=== PATIENT | female | born 2000 | race Caucasian/White ===

== ENCOUNTER 2025-02-17 18:49 | Emergency (ER) | payer MEDICAID, SELFPAY ==
[2025-02-17 18:57] VITALS: BP 129/68; PULSE 97; RESP 18; TEMP 36.8; O2SAT 97; BMI 20.5
--- NOTE | 2025-02-17 18:57 | ED_ITS ---
HPI - General Adult General Chief complaint: Allergic Reaction Stated complaint: Allergic reaction Time Seen by Provider: 02/17/25 19:00 Source: patient, RN notes reviewed and old records reviewed Mode of arrival: ambulatory Limitations: no limitations History of Present Illness ED Provider: Krystyna SHANKS narrative: 24-year-old female presents for evaluation of a rash that she 1st noticed ea rlier today. She denies any known allergies. The rash is itchy pain Denies any pain or fevers pain She denies any new medications, lotions, soaps, detergents. Denies any difficulty breathing or swallowing Related Data Previous Rx's ?Medication ?Instructions ?Recorded diphenhydramine HCl 25 mg capsule 25 mg PO Q4-6H PRN i tching #20 caps 02/17/25 (Allergy Medication) prednisone 20 mg tablet 40 mg (2 x 20 mg) PO DAILY # 10 tabs 02/17/25 Allergies Allergy/AdvReac Type Severity Reaction Status Date / Time No Known Allergies Allergy Verified 02/17/25 19:01 Review of Systems Constitutional: Constitutional: Denies body ache(s), Denies chills and Denies fever(s) Eyes: Eyes: Denies blurry vision ENT: Denies vertigo Cardiovascular: Cardiovascular: Denies chest pain and Denies dyspnea on exertion Respiratory: Respiratory: Denies cough and Denies dyspnea on exertion Integumentary/Breasts: Skin/Breast: Reports rash Neurologic: Denies vertigo PMFSH Social History Social History Advance Directives: No Advance Directives Information Provided: No Physical Exam ED Vital Signs: Vital Signs - 24 hr 02/17/25 18:57 02/17/25 19:15 Temperature 98.3 F 98.3 F Pulse Rate 97 97 Respiratory Rate 18 18 Blood Pressure 129/68 129/68 Pulse Oximetry 97 97 Oxygen Delivery Method Room Air Room Air BMI result Body Mass Index 20.5 Const General: healthy appearing, comfortable, no acute distress, alert and awake Nutritional Appearance: well nourished Orientation/consciousness: patient oriented x3 HENMT Other: No oral, perioral, or retropharyngeal edema Head: Yes normocephalic and Yes atraumatic Eyes Eyelids: Yes eyelids normal Conjunctivae: conjunctivae normal Sclerae: sclerae normal Corneas: corneas normal Pupils: Equal, round and reactive pupils present EOM: EOMs intact bilaterally Neck Neck: Yes full ROM Resp Effort & Inspection: normal respiratory effort, able to speak in complete sentences and not labored Skin Other: There is mild urticaria to the chest, upper back, extremities. No involvement of the face General skin exam: elasticity normal Neuro General: patient oriented x3 Cranial nerves: Yes Equal, round and reactive pupils present and Yes Bilaterally intact EOM present Cognition (Neuro): normal cognition Extrem Other: Moving all extremities well without any obvious deformities Course Course Course Narrative: RME, this is a rapid medical exam performed by David Greenwood please refer to primary provider for complete H&P- 24 year old Medical Decision Making Medical Decision Making MDM Narrative: 24-year-old female presents for evaluation of a mild rash. This appears consistent with a mild allergic reaction or urticaria. No evidence of anaphylaxis or systemic infection. We will treat with Benadryl and I did prescribe a course of prednisone but encouraged the patient to try just the Benadryl 1st. She will be referred to an weight shifter for further testing. Differential Diagnosis Differential Diagnoses: The differential diagnosis associated with the presentation includes Allergic reaction Urticaria Dermatitis Anaphylaxis Discharge Plan Discharge Clinical Impression: Urticaria Patient Disposition: Home, Self-Care Instructions: Urticaria (ED) Additional Instructions: Your symptoms are consistent with a very mild allergic reaction. I recommend taking Benadryl 25 mg every 4-6 hours. This may make you drowsy, do not drink alcohol or drive after taking it. Your symptoms do not clear up by tomorrow I recommend starting the prednisone that you were prescribed today Prescriptions: New diphenhydramine HCl [Allergy Medication] 25 mg capsule 25 mg PO Q4-6H PRN (Reason: itching) Qty: 20 0RF prednisone 20 mg tablet 40 mg PO DAILY Qty: 10 0RF [facility] [Outside] Referral Note: urticaria Stand Alone Forms: Work/School Release Interventions: ED Discharge Assessment Last Done: 02/17/25 19:15 Discharge Date/Time: 02/17/25 19:15 Print Language: Zimbabwean
--- OUTSIDE RECORDS SUMMARY | 2025-02-17 19:10 | XMS_ITS | Encounter Summary ---
Author Organization [facility] Address [address] [facility] [address] [place] [address] Phone Care Team Providers Care Senior Data Modeler Name Role Phone Dileep Arndt MD Primary Care Provider [phone] Erlinda Gomez MD Primary Care Provider [phone] Pcp, Unknown Primary Care Provider Unavailabl Jovita Bhatti Primary Care Provider [phone] Benjie Mcgraw SOLAR MANUFACTURER'S REPRESENTATIVE Unavailable [phone] Benjie Mcgraw SOLAR MANUFACTURER'S REPRESENTATIVE Unavailable [phone] Encounter Details Date Type Department Care Team (Late st Contact Info) Description 10/12/2019 Ancillary Orders [facility], X-Ray - [address] [address] Brock Link MD [address] [place] [address] [email or web address] DDH (developmental dysplasia of the hip); Perthes disease, right Social History Tobacco Use Types Packs/Day Years Used Date Smoking Tobacco: Never Smokeless Tobacco: Never Alcohol Use Standard Drinks/Week Comments Not Currently 0 (1 standard drink = 0.6 oz pur e alcohol) Comments No Sex and Gender Information Value Date Recorded Sex Assigned at Female 09/03/2017 12:25 PM EDT Legal Sex Female 8:45 PM EDT Gender Identity Female 09/03/2017 12:25 PM EDT Sexual Orientation Bisexual 09/03/2017 12 :25 PM EDT Occupation Industry Job Start Date Job End Date 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 POS [id number] Narrative 10/12/2019 12:41 PM EDT AP pelvis and bilateral q. day views of hips Compared to coned left hip 09/02/2017 and right hip 09/01/2016 Dysplastic right femoral head unchanged. No significant left hip dysplasia. New cortical screws affixing the right greater trochanter and in the right ilium from a periacetabular osteotomy. There is also an osteotomy of the lateral right superior ramus. Left hip is unchanged Symphysis pubis and SI joints seem intact. No dislocation. Procedure Note Long Landry MD - 10/12/2019 AP pelvis and bilateral q. day views of hips Compared to coned left hip 09/02/2017 and right hip 09/01/2016 Dysplastic right femoral head unchanged. No significant left hip dysplasia. New cortical screws affixing the right greater trochanter and in the rightilium from a periacetabular osteotomy. There is also an osteotomy of the lateral right superior ramus. Left hip is unchanged Symphysis pubis and SI joints seem intact. No dislocation. IMPRESSION: No immediate complications of right periacetabular osteotomy. 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, right documented in this encounter Additional Health Concerns Infection Onset Date Last Indicated Resolved Time CoV-Risk 07/25/2020 07/25/2020 08/04/2020 1:24 AM EST CoV-Risk 04/09/2022 04/09/2022 04/20/2022 1:22 AM EDT CoV-Risk 08/15/2024 08/15/2024 08/26/2024 1:21 AM EST documented as of this encounter Care Teams Senior Data Modeler Relationship Specialty Start Date End Date Dileep Arndt MD [address] [place] [address] [email or web address] PCP - General Pediatrics 09/03/17 11/08/19 Erlinda Gomez MD [address] [place] [address] PCP - General Pediatrics 11/09/19 04/08/22 Pcp, Unknown PCP - General 04/09/22 10/19/22 Jovita Aguayo PA [address] [place] [address] [email or web address] PCP - General Physician Furniture Mover Helper 10/20/22 Benjie Mcgraw [address] [address] [email or web address] Social Work 10/20/22 11/19/22 Benjie Mcgraw SOLAR MANUFACTURER'S REPRESENTATIVE [address] [place] [address] [employer] Social Work 11/01/24 documented as of this encounter Additional Source Comments The information contained in this document represents components of the legal health record. It is not the complete legal health record.[facility]
--- OUTSIDE RECORDS SUMMARY | 2025-02-17 19:10 | XMS_ITS | Encounter Summary ---
Author Organization [facility] Address [address] [facility] [address] [place] [address] Phone Care Team Providers Care Applied Anthropologist Name Role Phone Erlinda Gomez MD Primary Care Provider [phone] Pcp, Unknown Primary Care Provider Unavailabl Jovita Bhatti Primary Care Provider [phone] Benjie Mcgraw PROJECT TECHNICIAN Unavailable [phone] Benjie Mcgraw PROJECT TECHNICIAN Unavailable [phone] Encounter Details Date Type Department Care Team (Late st Contact Info) Description 11/09/2019 Ancillary Orders Virtual Department [address] [place] [address] Brock Link MD [address] [place] [address] [email or web address] Anterior dislocation of right hip, subsequent encounter Social History Tobacco Use Types Packs/Day Years [...] on file documented as of this encounter Visit Diagnoses Diagnosis Anterior dislocation of right hip, subsequent encounter documented in this encounter Additional Health Concerns Infection Onset Date Last Indicated Resolved Time CoV-Risk 07/25/2020 07/25/2020 08/04/2020 1:24 AM EST CoV-Risk 04/09/2022 04/09/2022 04/20/2022 1:22 AM EDT CoV-Risk 08/15/2024 08/15/2024 08/26/2024 1:21 AM EST documented as of this encounter Care Teams Applied Anthropologist Relationship Specialty Start Date End Date Erlinda Gomez MD [address] [facility], [facility] [address] [place] [address] [email or web address] PCP - General Pediatrics 11/09/19 04/08/22 Pcp, Unknown PCP - General 04/09/22 10/19/22 Jovita Aguayo PA [address] [place] [address] [email or web address] PCP - General Physician Statistical Technician 10/20/22 Benjie Mcgraw [address] [address] [facility] Social Work 10/20/22 11/19/22 Benjie Mcgraw [address] [address] [facility] Social Work 11/01/24 documented as of this encounter Additional Source Comments The information contained in this document represents components of the legal health record. It is not the complete legal health record.[facility]
--- OUTSIDE RECORDS SUMMARY | 2025-02-17 19:10 | XMS_ITS | Encounter Summary ---
Author Organization [facility] Address [address] [facility] [address] [place] [address] Phone Care Team Providers Care Cigarette Machines Mechanic Name Role Phone Erlinda Gomez MD Primary Care Provider [phone] Pcp, Unknown Primary Care Provider Unavailabl Jovita Bhatti Primary Care Provider [phone] Benjie Mcgraw SALES AND MARKETING PROFESSIONAL Unavailable [phone] Benjie Mcgraw SALES AND MARKETING PROFESSIONAL Unavailable [phone] Encounter Details Date Type Department Care Team (Late st Contact Info) Description 11/09/2019 Ancillary Orders Virtual Department [address] [place] [address] Brock Link MD [address] [place] [address] [email or web address] DDH (developmental dysplasia of the hip); [...] of this encounter Results * XR HIPS 1 VW EA BILAT PLUS PELVIS (11/10/2019 3:15 PM EDT) Anatomical Region Laterality Modality Hip, Pelvis Radiographic Hilda ging 11/10/2019 8:02 PM EDT Impressions 11/10/2019 8:13 PM EDT 1. Near completely healed right iliac osteotomy site. 2. Ununited right greater trochanteric fragment 3. Healing osteotomy of the right superior pubic ramus. POS - [id number] Narrative 11/10/2019 8:13 PM EDT EXAM: XR HIPS 1 VW EA BILAT PLUS PELVIS COMPARISON: October 12, 2019 FINDINGS: All the long screws are intact. Three long screws traverse the near completely healed right iliac osteotomy site. Two long screws traverse the ununited right proximal femur. 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 Healing of the osteotomy site at right superior pubic ramus. Bilateral sacroiliac joints, bilateral hips and pubic symphysis are congruent. An intrauterine device projects over the pelvis. Procedure Note Michael Barboza MD - 11/10/2019 EXAM: XR HIPS 1 VW EA BILAT PLUS PELVIS COMPARISON: October 12, 2019 FINDINGS: All the long screws are intact. Three long screws traverse the nearcompletely healed right iliac osteotomy site. Two long screws traverse theununited right proximal femur. Chronic dysplastic deformity of the rightfemoral head. Healing of the osteotomy site at right superior pubic ramus.Bilateral sacroiliac joints, bilateral hips and pubic symphysis arecongruent. An intrauterine device projects over the pelvis. IMPRESSION: 1. Near completely healed right iliac osteotomy site. 2. Ununited right greater trochanteric fragment 3. Healing osteotomy of the right superior pubic ramus. POS - [id number] Brock Link MD IMG XR PELVIS Final [...] documented as of this encounter Care Teams Cigarette Machines Mechanic Relationship Specialty Start Date End Date Erlinda Gomez MD [address] [facility] 2 [place] [address] [email or web address] PCP - General Pediatrics 11/09/19 04/08/22 Pcp, Unknown PCP - General 04/09/22 10/19/22 Jovita Aguayo PA [address] [place] [address] [email or web address] PCP - General Physician Paperhanger Assistant 10/20/22 Benjie Mcgraw [address] [address] [facility] Social Work 10/20/22 11/19/22 Benjie Mcgraw [address] [address] [facility] Social Work 11/01/24 documented as of this encounter Additional Source Comments The information contained in this document represents components of the legal health record. It is not the complete legal health record.[facility]
--- OUTSIDE RECORDS SUMMARY | 2025-02-17 19:10 | XMS_ITS | Clinical Summary ---
Author Organization [facility] Address [address] [place] [address] Phone Care Team Providers Care Customer Experience Analyst Name Role Phone Erlinda Gomez MD Unavailable [phone] , [facility] Unavailable [phone] Jovita Jones Primary Care Provider [phone] Allergies No known active allergies Medications acetaminophen (Tylenol) 325 mg tablet Dose: 650 mg, Dose Amount: 2 tab, PO, Q4hr, Entered: 08/26/19 16:57:09 EST, 51.4 0 Active piroxicam 20 mg capsuleIndicati ons:Tear of right acetabular labrum, initial encounter Take 20 mg = 1 capsule by mouth 1 time each day. 30 capsule 1 4 Active Additional Information Patient not taking.Reported on 08/04/2024 aspirin 325 mg EC tabletIndicatio ns:Tear of right acetabular labrum, initial encounter Take 325 mg = 1 tablet by mouth 1 time each day. 21 tablet 5 Active diazePAM 2 mg tabletIndicatio ns:Tear of right acetabular labrum, initial encounter Take 2 mg = 1 tablet by mouth every 8 hours if needed for muscle spasms. 20 tablet 5 Active oxyCODONE 5 mg immediate release tabletIndicatio ns:Tear of right acetabular labrum, initial encounter Take 5 mg = 1 tablet by mouth every 6 hours if needed (severe pain only). The patient may request a lesser amount be dispensed than what was prescribed. 16 tablet 5 Active ondansetron 4 mg tabletIndicatio ns:Tear of right acetabular labrum, initial encounter Take 4 mg = 1 tablet by mouth every 8 hours if needed for nausea or vomiting. 20 tablet 5 Active Active Problems Problem Noted Date Diagnosed Date Tear of right acetabular labrum 05/30/2024 Social History Tobacco Use Types Packs/Day Years Used Date Smoking Tobacco: Some Days Cigarettes Tobacco Cessation:Ready to Q uit: Not Asked; Counseling Given: Not Answered Alcohol Use Standard Drinks/Week Comments Yes 0 (1 standard drink = 0.6 oz pur e alcohol) Comments Unknown Sex and Gender Information Value Date Recorded Sex Assigned at Not on file Legal Sex Female 8:21 PM EDT Gender Identity Not on file Sexual Orientation Not on file Last Filed Vital Signs Vital Sign Reading Time Taken Comments Blood Pressure 115/55 08/04/2024 6:57 AM EST Pulse 102 11/19/2023 4:21 PM EDT Temperature 36 C (96.8 F) 08/04/2024 6:57 AM EST Respiratory Rate 20 11/19/2023 4:21 PM EDT Oxygen Saturation 98% 08/04/2024 6:57 AM EST Inhaled Oxygen Concentration - - Weight 61.9 kg (136 lb 7.4 oz) 08/04/2024 6:57 A M EST Height 165 cm (5' 4.96 ) 08/04/2024 6:57 AM EST Body Mass Index 22.74 08/04/2024 6:57 AM EST Plan of Treatment Health Maintenance Due Date Last Done Comments HIV Screening 2001 Meningococcal B Vaccine (1 of 2 - Standard) 2017 Hepatitis C Screening 2019 Pneumococcal Vaccine: Pediatrics (0 to 5 Years) and At-Risk Patients (6 to 49 Years) (1 of 2 - PCV) 2020 08/06/2005, 01/11/2002, 2001 DTaP/Tdap/Td Vaccines (7 - Td or Tdap) 05/30/2023 05/30/2013, 08/06/2005, 01/09/2003, Additional history exists COVID-19 Vaccine (1 - season) 2024 Influenza Vaccine (#1) 2025 , 04/21/2020, 03/12/2011, Additional history exists Hepatitis B Vaccines Completed 04/06/2002, 2001, 2001 HIB Vaccines Completed 09/21/2002, 0 07/2002, 01/11/2002, Additional history exists IPV Vaccines Completed 08/06/2005, 07/2002, 07/12/2002, Additional history exists MMR Vaccines Completed 08/28/2006, 09/21/2002 Varicella Vaccines Completed 08/28/2006, 07/12/2002 HPV Vaccines Completed 11/28/2014, 11/2014, 05/30/2013 Meningococcal Vaccine Completed 03/02/2019, 013 Hepatitis A Vaccines Completed 09/05/2020, 03/02/20 19 Rotavirus Vaccines Aged Out No longer eligible based on patient's age to complete this topic Insurance [employer] [id number] [employer] Care Teams Customer Experience Analyst Relationship Specialty Start Date End Date Erlinda Gomez MD [address] [place] [phone] PCP - Insurance PCP 10/26/19 [facility] [address] [place] [address] PCP - Clinical PCP 02/02/23 Jovita Jones [address] [place] [address] PCP - General Pediatrics 09/27/24
--- OUTSIDE RECORDS SUMMARY | 2025-02-17 19:10 | XMS_ITS | Encounter Summary ---
Author Organization [facility] Address [address] [facility] [address] [place] [address] Phone Care Team Providers Care Boat Cleaner Name Role Phone Jeannie Payan NP Primary Care Provide r Dileep Arndt MD Primary Care Provider Erlinda Gomez MD Primary Care Provider [phone] Pcp, Unknown Primary Care Provider Unavailabl e Jovita Aguayo Primary Care Provider Benjie Mcgraw ROOFER METAL Unavailable [phone] Benjie Mcgraw ROOFER METAL Unavailable [phone] Encounter Details Date Type Department Care Team (Late st Contact Info) Description 09/02/2017 Ancillary Orders [facility], X-Ray - [facility] [address] [place] [address] Jeannie Payan, JAVAN [address] [place] [address] [email or web address] Pain of left hip joint Social History Tobacco Use Types Packs/Day Years Used Date Smoking Tobacco: Never Assessed Comments Unknown Sex and Gender Information Value Date Recorded Sex Assigned at Female 09/03/2017 12:25 PM EDT Legal Sex Female 8:45 PM EDT Gender Identity Female 09/03/2017 12:25 PM EDT Sexual Orientation Bisexual 09/03/2017 12 :25 PM EDT documented as of this encounter Plan of Treatment Not on file documented as of this encounter Results * XR HIP 2 VW LEFT PLUS PELVIS (09/02/2017 11:57 AM EDT) Anatomical Region Laterality Modality Hip, Pelvis Radiographic Hilda ging 09/02/2017 12:1 1 PM EDT Impressions 09/02/2017 12:23 PM EDT Negative radiographs of the left hip. POS - [id number] Narrative 09/02/2017 12:23 PM EDT HISTORY: Pain. COMPARISON: None. FINDINGS: AP and lateral views. The acetabulum and femoral head are well formed. No significant deformities. No significant arthritic changes. No suspicious lucencies or areas of sclerosis within the bones. No fractures, subluxations or dislocations. No suspicious soft tissue calcifications. Procedure Note Manpreet Reynolds MD - 09/02/2017 HISTORY: Pain. COMPARISON: None. FINDINGS: AP and lateral views. The acetabulum and femoral head are well formed. No significantdeformities. No significant arthritic changes. No suspicious lucenciesor areas of sclerosis within the bones. No fractures, subluxations ordislocations. No suspicious soft tissue calcifications. IMPRESSION: Negative radiographs of the left hip. POS - [id number] us Jeannie Raymond [place] ENVIRONMENTAL HEALTH PHYSICIAN IMG XR PELVIS Final Result documented in this encounter Visit Diagnoses Diagnosis Pain of left hip joint Pain of left hip joint documented in this encounter Additional Health Concerns Infection Onset Date Last Indicated Resolved Time CoV-Risk 07/25/2020 07/25/2020 08/04/2020 1:24 AM EST CoV-Risk 04/09/2022 04/09/2022 04/20/2022 1:22 AM EDT CoV-Risk 08/15/2024 08/15/2024 08/26/2024 1:21 AM EST documented as of this encounter Care Teams Boat Cleaner Relationship Specialty Start Date End Date Jeannie Payan JAVAN Andrade [address] [place] [address] [email or web address] PCP - General Family Medicine 09/02/17 09/02/17 Dileep Arndt MD [address] [place] [address] PCP - General Pediatrics 09/03/17 11/08/19 Erlinda Gomez MD [address] [place] [address] PCP - General Pediatrics 11/09/19 04/08/22 Pcp, Unknown PCP - General 04/09/22 10/19/22 Jovita Aguayo PA [address] [place] [address] [email or web address] PCP - General Physician Seafood Farmer 10/20/22 Benjie Mcgraw ROOFER METAL [address] [place] [address] [facility] Social Work 10/20/22 11/19/22 Benjie Mcgraw [address] [address] [facility] Social Work 11/01/24 documented as of this encounter Additional Source Comments The information contained in this document represents components of the legal health record. It is not the complete legal health record.[facility]
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
--- NOTE | 2025-02-17 19:14 | PC.NURSE ---
pt discharge by provider.
[2025-02-17 19:15] VITALS: BP 129/68; PULSE 97; RESP 18; TEMP 36.8; O2SAT 97
== END 2025-02-17 19:15 | disposition home or self-care (01) ==
PROVIDERS: Emergency Provider Emergency Medicine
DX: L50.9 Urticaria, unspecified (principal); R21 Rash and other nonspecific skin eruption
CPT/HCPCS: 99282; 99283